=== PATIENT | female | born 1955 | race Caucasian/White ===

== ENCOUNTER 2017-05-06 23:29 | Emergency (ER) | payer BC ==
[~2017-05-06] VITALS: Ht 165.1 cm; Wt 61.2 kg
[~2017-05-06 23:29] MED LIST: ASPI325 PO; ASPI325EC PO; ATEN25 PO; CALCIUM + D3 E1 EACH PO; CENTRUM SILVER1 EAC3 PO; CHOLESTEROL MED; CHOLESTYRAMINE; CITA20 PO; CLOB.05TC TP; CONEST.3 PO; DIAZ2 PO; DIAZ5 PO; DISU250 PO; FENO160; FENO48 PO; FISH OIL 1,0001 EAC1 PO; GEMF600 PO; LEVO750 PO; LOSA50 PO; MELO7.5 PO; MULVITMINF PO; NAPR500 PO; NIAC500 PO; Norco 5-325 Ta1 EACH PO; OMEP10ER PO; OMEP20ER PO; OMEPRAZOLE MAGN20 MG PO; POTCHL20ER PO; PRAV20 PO; PRAV40 PO; PROVASTATIN PO; TRIA80TC TOP; TRIHYD253A PO; UBID100 PO
[2017-05-07 00:14] LABS: BASOPHILS ABSOLUTE AUTO 0.02 K/mm3 (0.00-0.23); BASOPHILS PERCENT AUTO 0 % (0-2); EOSINOPHILS ABSOLUTE AUTO 0.25 K/mm3 (0.00-0.68); EOSINOPHILS PERCENT AUTO 3 % (0-6); Hematocrit 43.1 % (33.0-51.0); Hemoglobin 15.2 g/dL (11.5-16.0); IMMATURE GRAN ABSOLUTE AUTO 0.02 K/mm3 (0.00-0.10); IMMATURE GRAN PERCENT AUTO 0 % (0-1); LYMPHOCYTES ABSOLUTE AUTO 3.77 K/mm3 (0.84-5.20); LYMPHOCYTES PERCENT AUTO 42 % (21-46); MONOCYTES ABSOLUTE AUTO 0.47 K/mm3 (0.16-1.47); MONOCYTES PERCENT AUTO 5 % (4-13); Mean Corpuscular HGB Conc 35.3 g/dL (31.5-36.5); Mean Corpuscular Volume 91 fL (80-100); Mean Platelet Volume 9.4 fL (9.1-12.4); NEUTROPHILS ABSOLUTE AUTO 4.54 K/mm3 (1.96-9.15); NEUTROPHILS PERCENT AUTO 50 % (41-73); Platelet Count 216 K/mm3 (150-400); RDW Coefficient Variation 13.9 % (11.7-14.2); RDW Standard Deviation 46.3 fL (35.1-46.3); Red Blood Cell Count 4.75 M/mm3 (3.80-5.20); White Blood Cell Count 9.07 K/mm3 (4.00-11.30)
[2017-05-07 00:20] LABS: Source, Urine Clean Catch
[2017-05-07 00:24] LABS: Bilirubin, Urine Neg (Neg); Blood, Urine Neg (Neg); Glucose Qualitative, Urine Neg (Neg); Ketones, Urine Neg (Neg); Leukocyte Esterase, Urine Neg (Neg); Nitrite, Urine Neg (Neg); Protein, Urine Neg (Neg); Urobilinogen, Urine NORM (Normal); pH, Urine 6.5 (5.0-8.0)
[2017-05-07 00:26] LABS: Appearance, Urine Clear (Clear); Color, Urine Yellow (P-Yellow)
[2017-05-07 01:11] LABS: Alanine Aminotransfer (ALT/SGP 29 U/L (12-78); Albumin, Blood 3.6 g/dL (3.4-5.0); Albumin/Globulin Ratio 0.9 (0.8-1.8); Alk Phos 110 U/L (50-136); Anion Gap 12 mmol/L (6-16); Aspartate Aminotrans (AST/SGOT 34 U/L (12-37); Bilirubin, Total 0.6 mg/dL (0.1-1.0); Blood Urea Nitrogen 7 mg/dL (8-24); Bun/Creatinine Ratio 17.3 (12.0-20.0); CO2, Blood 24 mmol/L (21-32); Calcium, Blood 8.2 mg/dL (8.5-10.1); Chloride, Blood 100 mmol/L (98-108); Globulin, Blood 3.8 g/dL (2.2-4.0); Glomerular Filtration Rate >60 (60-); Glucose, Blood 115 mg/dL (70-99); Potassium, Blood 3.1 mmol/L (3.5-5.5); Sodium, Blood 136 mmol/L (136-145); Total Protein, Blood 7.4 g/dL (6.4-8.2)
[2017-05-07] MEDS ORDERED: Zofran Odt4 MG PO (01:35)
== END 2017-05-07 01:48 | disposition home or self-care (01) ==
LOC: ER 23:29
PROVIDERS: Emergency Medicine
DX: K52.9 Noninfective gastroenteritis and colitis, unspecified (principal); F17.200 Nicotine dependence, unspecified, uncomplicated; Z88.5 Allergy status to narcotic agent; Z79.899 Other long term (current) drug therapy; Z79.82 Long term (current) use of aspirin; Z96.641 Presence of right artificial hip joint
CPT/HCPCS: 36415; 80053; 81003; 85025; 93005; 93010; 96361; 96374; 99283; J2405; J7030

== ENCOUNTER → 2017-12-08 | Outpatient (CLI) | payer BC ==
[~2017-12-08] MED LIST changes: +Zofran Odt4 MG PO
[2017-12-09 10:01] LABS: Adenovirus F 40/41 Not Detected (NOT DETECT); Astrovirus Not Detected (NOT DETECT); Campylobacter Sp Not Detected (NOT DETECT); Cryptosporidium Not Detected (NOT DETECT); Cyclospora Cayetanensis Not Detected (NOT DETECT); E. Coli O157 Not Detected (NOT DETECT); Entamoeba Histolytica Not Detected (NOT DETECT); Enteroaggregative E. coli-EAEC Not Detected (NOT DETECT); Enteropathogenic E. coli-EPEC Not Detected (NOT DETECT); Enterotoxigenic E. coli-ETEC Not Detected (NOT DETECT); Giardia Lamblia Not Detected (NOT DETECT); Norovirus GI/GII Not Detected (NOT DETECT); Plesiomonas Shigelloides Not Detected (NOT DETECT); Rotavirus A Not Detected (NOT DETECT); Salmonella Sp Not Detected (NOT DETECT); Sapovirus Not Detected (NOT DETECT); Shiga Toxin-prod E. coli-STEC Not Detected (NOT DETECT); Shigella/Enteroin E. coli-EIEC Not Detected (NOT DETECT); Vibrio Cholerae Not Detected (NOT DETECT); Vibrio Sp Not Detected (NOT DETECT); Yersinia Enterocolitica Not Detected (NOT DETECT)
== END | disposition home or self-care (01) ==
LOC: LAB EV 10:00
PROVIDERS: Internal Medicine Gastroenterology
DX: R19.7 Diarrhea, unspecified (principal)
CPT/HCPCS: 87507

== ENCOUNTER 2019-10-17 09:38 | Day surgery (SDC) | payer OTHER ==
[~2019-10-17] VITALS: Ht 167.6 cm; Wt 65.4 kg
[~2019-10-17 09:38] MED LIST changes: -ASPI325 PO; +ASPI81CH PO; -OMEPRAZOLE MAGN20 MG PO
[2019-10-17] MEDS ORDERED: LOSA50 PO (10:35)
[2019-10-17] MEDS ORDERED: REPATHA SU140 MG/1 M SC (10:38)
--- NOTE | 2019-10-17 10:51 | NUR ---
Ambulatory in Day Surgery. History, Chart, Medications and Allergies reviewed before start of procedure. Lungs clear T/O to Auscultation. Patient confirms NPO status and agrees with scheduled surgery. Pre-Op teaching done. Pt verbalizes understanding. Patient States Post-Procedure ride home has been arranged.
--- NOTE | 2019-10-17 11:16 | NUR ---
10/17/19 1116 Lizzeth Teixeira History, Chart, Medications and Allergies reviewed before start of procedure.PATIENT DETERMINED TO BE ASA APPROPRIATE FOR PROPOFOL SEDATION PRIOR TO START OF PROCEDURE BY .MONITOR INTACT WITH CONTINUOUS PULSE OXIMETRY AND INTERMITTENT BP.3-LEAD EKG REVIEWED WITH PHYSICIAN PRIOR TO START OF PROCEDURE.O2 VIA N/C INTACT THROUGHOUT SEDATION/PROCEDURE.Bite Block Placed PROIR TO START
--- NOTE | 2019-10-17 11:47 | NUR ---
Discharge instructions reviewed with patient. Patient verbalizes understanding. Copy given to patient to take home. Patient States Post-Procedure ride home has been arranged. Discharged via wheelchair to private car for ride home.
== END 2019-10-17 23:13 | disposition home or self-care (01) ==
LOC: ORSCMMR 09:38 → ORD 10:30 → ORSCMMR 10:30
PROVIDERS: Internal Medicine Gastroenterology
PROC: 0DB58ZX Excision of Esophagus, Via Natural or Artificial Opening Endoscopic, Diagnostic (ICD-10-PCS; principal; 2019-10-17 10:30)
PROC: 0D758ZZ Dilation of Esophagus, Via Natural or Artificial Opening Endoscopic (ICD-10-PCS; principal; 2019-10-17 10:30)
PROC: 0DB78ZX Excision of Stomach, Pylorus, Via Natural or Artificial Opening Endoscopic, Diagnostic (ICD-10-PCS; principal; 2019-10-17 10:30)
DX: R13.14 Dysphagia, pharyngoesophageal phase (principal); K21.9 Gastro-esophageal reflux disease without esophagitis; K22.70 Barrett's esophagus without dysplasia; K22.2 Esophageal obstruction; K44.9 Diaphragmatic hernia without obstruction or gangrene; K29.70 Gastritis, unspecified, without bleeding; I10 Essential (primary) hypertension; E78.00 Pure hypercholesterolemia, unspecified; Z79.899 Other long term (current) drug therapy; F17.210 Nicotine dependence, cigarettes, uncomplicated
CPT/HCPCS: 88305; 88342; C1726; J2704; J7120

== ENCOUNTER → 2020-03-02 | Outpatient (CLI) | payer OTHER ==
[~2020-03-02] MED LIST changes: +REPATHA SU140 MG/1 M SC
[2020-03-02 13:06] LABS: Alanine Aminotransfer (ALT/SGP 44 U/L (12-78); Albumin/Globulin Ratio 1.3 (0.8-1.8); Alk Phos 61 U/L (40-126); Anion Gap 9 mmol/L (6-16); Aspartate Aminotrans (AST/SGOT 37 U/L (12-37); Bilirubin, Total 0.5 mg/dL (0.1-1.0); Blood Urea Nitrogen 6 mg/dL (8-24); CHOL/HDL RATIO 6.8; CO2, Blood 29 mmol/L (21-32); Calcium, Blood 9.3 mg/dL (8.5-10.1); Chloride, Blood 101 mmol/L (98-108); Cholesterol 318 mg/dL (50-200); Creatinine, Blood 0.67 mg/dL (0.40-1.00); Globulin, Blood 3.1 g/dL (2.2-4.0); Glomerular Filtration Rate >60 (60-); Glucose, Blood 95 mg/dL (70-99); HDL Cholesterol 47 mg/dL (>39); LDL/HDL RATIO 4.1; Low Density Lipoprotein Chol 193 mg/dL (<110); Potassium, Blood 3.8 mmol/L (3.5-5.5); Sodium, Blood 139 mmol/L (136-145); Total Protein, Blood 7.1 g/dL (6.4-8.2); Triglycerides 390 mg/dL (30-160); Very Low Density Lipoprot Chol 78 mg/dL (6-32)
== END ==
LOC: LAB EV 09:53 → LAB SHORT 09:53
PROVIDERS: Nurse Practitioner Family
DX: I10 Essential (primary) hypertension (principal)
CPT/HCPCS: 36415; 80053; 80061

== ENCOUNTER → 2021-01-01 | Outpatient (CLI) | payer OTHER | LOC: LAB 12:06 → LAB SHORT 12:06 | DX: D48.5 Neoplasm of uncertain behavior of skin (principal); D04.61 Carcinoma in situ of skin of right upper limb, including shoulder; Z88.5 Allergy status to narcotic agent | CPT/HCPCS: 88305 ==

== ENCOUNTER → 2021-09-03 | Outpatient (CLI) | payer OTHER | END | disposition home or self-care (01) | LOC: PLD 12:16 → LAB SHORT 12:16 | DX: D04.71 Carcinoma in situ of skin of right lower limb, including hip (principal) | CPT/HCPCS: 88307 ==

== ENCOUNTER → 2021-09-17 | Outpatient (CLI) | payer OTHER ==
[2021-09-17 19:45] LABS: Adenovirus F 40/41 Not Detected (NOT DETECT); Astrovirus Not Detected (NOT DETECT); Campylobacter Sp Not Detected (NOT DETECT); Cryptosporidium Not Detected (NOT DETECT); Cyclospora Cayetanensis Not Detected (NOT DETECT); E. Coli O157 Not Detected (NOT DETECT); Entamoeba Histolytica Not Detected (NOT DETECT); Enteroaggregative E. coli-EAEC Not Detected (NOT DETECT); Enteropathogenic E. coli-EPEC Not Detected (NOT DETECT); Enterotoxigenic E. coli-ETEC Not Detected (NOT DETECT); Giardia Lamblia Not Detected (NOT DETECT); Norovirus GI/GII Not Detected (NOT DETECT); Plesiomonas Shigelloides Not Detected (NOT DETECT); Rotavirus A Not Detected (NOT DETECT); Salmonella Sp Not Detected (NOT DETECT); Sapovirus Not Detected (NOT DETECT); Shiga Toxin-prod E. coli-STEC Not Detected (NOT DETECT); Shigella/Enteroin E. coli-EIEC Not Detected (NOT DETECT); Vibrio Cholerae Not Detected (NOT DETECT); Vibrio Sp Not Detected (NOT DETECT); Yersinia Enterocolitica Not Detected (NOT DETECT)
== END | disposition home or self-care (01) ==
LOC: LAB 09:00 → LAB SHORT 09:00
PROVIDERS: Internal Medicine Gastroenterology
DX: R19.7 Diarrhea, unspecified (principal)
CPT/HCPCS: 87507

== ENCOUNTER 2021-11-26 08:07 | Day surgery (SDC) | payer OTHER ==
[~2021-11-26] VITALS: Ht 165.1 cm; Wt 67.2 kg
[~2021-11-26 08:07] MED LIST changes: +AMLODIPINE BESYL5 MG PO; +CEFD300; +FENO160 PO; +REPATHA SY140 MG/1 M SC
[2021-11-26] MEDS ORDERED: PRALUENT P75 MG/1 ML INJ (08:34)
--- NOTE | 2021-11-26 08:51 | NUR ---
Ambulatory in Day Surgery. History, Chart, Medications and Allergies reviewed before start of procedure. Patient States Post-Procedure ride home has been arranged WITH DAVE.
--- NOTE | 2021-11-26 09:52 | NUR ---
11/26/21 0952 Shereen Fleming HISTORY, CHART, MEDICATIONS AND ALLERGIES REVIEWED BEFORE START OF PROCEDURE. PATIENT CONFIRMS NPO STATUS AND AGREES WITH SCHEDULED PROCEDURE. 3-LEAD EKG REVIEWED WITH PHYSICIAN PRIOR TO START OF PROCEDURE. MONITOR INTACT WITH CONTINUOUS PULSE OXIMETRY,CAPNOGRAPHY, 3-LEAD EKG, INTERMITTENT BP. SUPPLEMENTAL O2 TO BE TITRATED THROUGHOUT PROCEDURE TO MAINTAIN O2 SATURATION ABOVE 90%. PATIENT DETERMINED TO BE ASA APPROPRIATE FOR PROPOFOL SEDATION PRIOR TO START OF PROCEDURE BY DR. EDWARDS.
--- NOTE | 2021-11-26 10:54 | NUR ---
Patient up to Ambulate independently. Gait steady. Discharge instructions reviewed with patient. Patient verbalizes understanding. Copy given to patient to take home. Patient States Post-Procedure ride home has been arranged with Wilbert. Discharged via wheelchair to private car for ride home.
== END 2021-11-26 11:04 | disposition home or self-care (01) ==
LOC: ORSCMMR 08:07 → ORD 09:00 → ORSCMMR 09:00
PROVIDERS: Internal Medicine Gastroenterology
PROC: 0DBN8ZX Excision of Sigmoid Colon, Via Natural or Artificial Opening Endoscopic, Diagnostic (ICD-10-PCS; principal; 2021-11-26 09:00)
PROC: 0DBB8ZX Excision of Ileum, Via Natural or Artificial Opening Endoscopic, Diagnostic (ICD-10-PCS; principal; 2021-11-26 09:00)
PROC: 0DBP8ZX Excision of Rectum, Via Natural or Artificial Opening Endoscopic, Diagnostic (ICD-10-PCS; principal; 2021-11-26 09:00)
DX: R19.7 Diarrhea, unspecified (principal); Z86.010 Personal history of colon polyps; K63.5 Polyp of colon; I10 Essential (primary) hypertension; E78.00 Pure hypercholesterolemia, unspecified; F32.A Depression, unspecified; Z79.899 Other long term (current) drug therapy; F17.210 Nicotine dependence, cigarettes, uncomplicated
CPT/HCPCS: 88305; J2250; J2704; J7120

== ENCOUNTER 2022-03-16 18:25 | Emergency (ER) | payer OTHER ==
[~2022-03-16] VITALS: Ht 167.6 cm; Wt 68.0 kg
[~2022-03-16 18:25] MED LIST changes: +PRALUENT P75 MG/1 ML INJ
[2022-03-16 20:14] LABS: BASOPHILS ABSOLUTE AUTO 0.03 K/mm3 (0.00-0.23); BASOPHILS PERCENT AUTO 0 % (0-2); EOSINOPHILS ABSOLUTE AUTO 0.11 K/mm3 (0.00-0.68); EOSINOPHILS PERCENT AUTO 1 % (0-6); Hematocrit 45.2 % (33.0-51.0); IMMATURE GRAN ABSOLUTE AUTO 0.04 K/mm3 (0.00-0.10); IMMATURE GRAN PERCENT AUTO 1 % (0-1); LYMPHOCYTES ABSOLUTE AUTO 2.98 K/mm3 (0.84-5.20); LYMPHOCYTES PERCENT AUTO 37 % (21-46); MONOCYTES ABSOLUTE AUTO 0.42 K/mm3 (0.16-1.47); MONOCYTES PERCENT AUTO 5 % (4-13); Mean Corpuscular HGB 31.8 pg (26.0-34.0); Mean Corpuscular HGB Conc 33.2 g/dL (31.5-36.5); Mean Corpuscular Volume 96 fL (80-100); Mean Platelet Volume 9.8 fL (9.1-12.4); NEUTROPHILS ABSOLUTE AUTO 4.39 K/mm3 (1.96-9.15); NEUTROPHILS PERCENT AUTO 55 % (41-73); Platelet Count 237 K/mm3 (150-400); RDW Coefficient Variation 12.3 % (11.7-14.2); RDW Standard Deviation 44.3 fL (35.1-46.3); Red Blood Cell Count 4.71 M/mm3 (3.80-5.20); White Blood Cell Count 7.97 K/mm3 (4.00-11.30)
[2022-03-16 20:29] LABS: Albumin, Blood 3.6 g/dL (3.4-5.0); Albumin/Globulin Ratio 1.2 (0.8-1.8); Bilirubin, Total 0.6 mg/dL (0.1-1.0); Bun/Creatinine Ratio 10.7 (12.0-20.0); Creatinine, Blood 0.56 mg/dL (0.40-1.00); Potassium, Blood 3.4 mmol/L (3.5-5.5); Total Protein, Blood 6.6 g/dL (6.4-8.2)
== END 2022-03-16 21:57 | disposition home or self-care (01) ==
LOC: ER 18:25
PROVIDERS: Emergency Medicine
DX: F10.129 Alcohol abuse with intoxication, unspecified (principal); I10 Essential (primary) hypertension; F17.210 Nicotine dependence, cigarettes, uncomplicated; Y90.8 Blood alcohol level of 240 mg/100 ml or more; Z88.5 Allergy status to narcotic agent; Z79.899 Other long term (current) drug therapy
CPT/HCPCS: 36415; 70450; 80053; 85025; G0480

== ENCOUNTER 2022-11-16 09:36 | Day surgery (SDC) | payer OTHER ==
[2022-11-16] VITALS (11 sets, daily range): BP systolic 100–143; BP diastolic 69–98
[~2022-11-16] VITALS: Ht 162.6 cm; Wt 64.5 kg
[~2022-11-16 09:36] MED LIST changes: +CHOLP PO; +ESCI20 PO; +LOPE2C PO; +REPATHA SU140 MG/1 M SQ
--- NOTE | 2022-11-16 10:09 | NUR ---
History, Chart, Medications and Allergies reviewed before start of procedure. Lungs clear T/O to Auscultation. WET COUGH NOTED AND CLEARS PT REPORTS NORMAL "SMOKERS COUGH" Patient confirms NPO status and agrees with scheduled surgery. Pre-Op teaching done. Pt verbalizes understanding. Patient States Post-Procedure ride home has been arranged.
--- NOTE | 2022-11-16 11:42 | NUR ---
11/16/22 1142 Azeem Hilliard HISTORY, CHART, MEDICATIONS AND ALLERGIES REVIEWED BEFORE START OF PROCEDURE. PATIENT CONFIRMS NPO STATUS AND AGREES WITH SCHEDULED PROCEDURE. 3-LEAD EKG REVIEWED WITH PHYSICIAN PRIOR TO START OF PROCEDURE. MONITOR INTACT WITH CONTINUOUS PULSE OXIMETRY,CAPNOGRAPHY, 3-LEAD EKG, INTERMITTENT BP. SUPPLEMENTAL O2 TO BE TITRATED THROUGHOUT PROCEDURE TO MAINTAIN O2 SATURATION ABOVE 90%. PATIENT DETERMINED TO BE ASA APPROPRIATE FOR PROPOFOL SEDATION PRIOR TO START OF PROCEDURE BY
--- NOTE | 2022-11-16 12:15 | NUR ---
Patient up to Ambulate independently. Gait steady. Discharge instructions reviewed with patient. Patient verbalizes understanding. Copy given to patient to take home. Patient States Post-Procedure ride home has been arranged. Discharged via wheelchair to private car for ride home.
== END 2022-11-16 12:15 | disposition home or self-care (01) ==
LOC: ORSCMMR 09:36 → ORD 09:36 → ORSCMMR 09:37 → ORD 10:30
PROVIDERS: Internal Medicine Gastroenterology
PROC: 0DB58ZX Excision of Esophagus, Via Natural or Artificial Opening Endoscopic, Diagnostic (ICD-10-PCS; principal; 2022-11-16 10:30)
PROC: 0DB98ZX Excision of Duodenum, Via Natural or Artificial Opening Endoscopic, Diagnostic (ICD-10-PCS; principal; 2022-11-16 10:30)
PROC: 0DB78ZX Excision of Stomach, Pylorus, Via Natural or Artificial Opening Endoscopic, Diagnostic (ICD-10-PCS; principal; 2022-11-16 10:30)
DX: K22.70 Barrett's esophagus without dysplasia (principal); K29.80 Duodenitis without bleeding; K29.70 Gastritis, unspecified, without bleeding; K21.9 Gastro-esophageal reflux disease without esophagitis; I10 Essential (primary) hypertension; E78.00 Pure hypercholesterolemia, unspecified; Z79.899 Other long term (current) drug therapy; F17.210 Nicotine dependence, cigarettes, uncomplicated
CPT/HCPCS: 88305; 88342; A9270; J2250; J2704; J7120

== ENCOUNTER 2023-05-20 15:41 | Emergency (ER) | payer OTHER ==
[~2023-05-20] VITALS: Ht 167.6 cm; Wt 65.3 kg
[~2023-05-20 15:41] MED LIST changes: +Chromium Pico400 MCG; +VASCEPA1 G1 PO
[2023-05-20 15:44] VITALS: BP 99/67
[2023-05-20 16:49] LABS: BASOPHILS ABSOLUTE AUTO 0.06 K/mm3 (0.00-0.23); BASOPHILS PERCENT AUTO 1 % (0-2); EOSINOPHILS ABSOLUTE AUTO 0.07 K/mm3 (0.00-0.68); EOSINOPHILS PERCENT AUTO 1 % (0-6); Hematocrit 43.2 % (33.0-51.0); IMMATURE GRAN ABSOLUTE AUTO 0.02 K/mm3 (0.00-0.10); IMMATURE GRAN PERCENT AUTO 0 % (0-1); LYMPHOCYTES ABSOLUTE AUTO 2.87 K/mm3 (0.84-5.20); LYMPHOCYTES PERCENT AUTO 44 % (21-46); MONOCYTES ABSOLUTE AUTO 0.34 K/mm3 (0.16-1.47); MONOCYTES PERCENT AUTO 5 % (4-13); Mean Corpuscular HGB 33.1 pg (26.0-34.0); Mean Corpuscular HGB Conc 34.7 g/dL (31.5-36.5); Mean Corpuscular Volume 95 fL (80-100); Mean Platelet Volume 9.4 fL (9.1-12.4); NEUTROPHILS ABSOLUTE AUTO 3.22 K/mm3 (1.96-9.15); NEUTROPHILS PERCENT AUTO 49 % (41-73); Platelet Count 227 K/mm3 (150-400); RDW Coefficient Variation 12.3 % (11.7-14.2); RDW Standard Deviation 43.3 fL (35.1-46.3); Red Blood Cell Count 4.53 M/mm3 (3.80-5.20); White Blood Cell Count 6.58 K/mm3 (4.00-11.30)
[2023-05-20 17:18] LABS: Albumin, Blood 3.5 g/dL (3.4-5.0); Albumin/Globulin Ratio 1.1 (0.8-1.8); Bilirubin, Total 0.7 mg/dL (0.1-1.0); Bun/Creatinine Ratio 19.5 (12.0-20.0); Calcium, Blood 9.2 mg/dL (8.5-10.1); Creatinine, Blood 0.57 mg/dL (0.40-1.00); Globulin, Blood 3.3 g/dL (2.2-4.0); Potassium, Blood 3.2 mmol/L (3.5-5.5); Total Protein, Blood 6.8 g/dL (6.4-8.2)
== END 2023-05-20 18:03 | disposition left against medical advice (07) ==
LOC: ER 15:41
PROVIDERS: Physician Assistant
DX: Z53.21 Procedure and treatment not carried out due to patient leaving prior to being seen by health care provider (principal)
CPT/HCPCS: 80053; 83690; 85025; 93005; 93010; 99282-25

== ENCOUNTER 2023-06-23 18:45 | Emergency (ER) | payer OTHER ==
[~2023-06-23] VITALS: Ht 167.6 cm; Wt 60.3 kg
[2023-06-23 19:58] LABS: BASOPHILS ABSOLUTE AUTO 0.05 K/mm3 (0.00-0.23); BASOPHILS PERCENT AUTO 0 % (0-2); EOSINOPHILS ABSOLUTE AUTO 0.05 K/mm3 (0.00-0.68); EOSINOPHILS PERCENT AUTO 0 % (0-6); Hematocrit 44.9 % (33.0-51.0); Hemoglobin 15.7 g/dL (11.5-16.0); IMMATURE GRAN ABSOLUTE AUTO 0.05 K/mm3 (0.00-0.10); IMMATURE GRAN PERCENT AUTO 0 % (0-1); LYMPHOCYTES ABSOLUTE AUTO 2.84 K/mm3 (0.84-5.20); LYMPHOCYTES PERCENT AUTO 24 % (21-46); MONOCYTES ABSOLUTE AUTO 0.83 K/mm3 (0.16-1.47); MONOCYTES PERCENT AUTO 7 % (4-13); Mean Corpuscular HGB 33.2 pg (26.0-34.0); Mean Corpuscular Volume 95 fL (80-100); Mean Platelet Volume 10.4 fL (9.1-12.4); NEUTROPHILS PERCENT AUTO 68 % (41-73); Platelet Count 199 K/mm3 (150-400); RDW Standard Deviation 41.8 fL (35.1-46.3); Red Blood Cell Count 4.73 M/mm3 (3.80-5.20); White Blood Cell Count 12.02 K/mm3 (4.00-11.30)
[2023-06-23 20:18] LABS: Albumin, Blood 4.1 g/dL (3.4-5.0); Albumin/Globulin Ratio 1.2 (0.8-1.8); Bilirubin, Total 1.8 mg/dL (0.1-1.0); Calcium, Blood 12.7 mg/dL (8.5-10.1); Creatinine, Blood 1.2 mg/dL (0.40-1.00); Globulin, Blood 3.4 g/dL (2.2-4.0); Potassium, Blood 2.9 mmol/L (3.5-5.5); Total Protein, Blood 7.5 g/dL (6.4-8.2)
[2023-06-23] MEDS ORDERED: Aspir 8181 MG PO (20:43)
[2023-06-23] MEDS ORDERED: Potassium Chloride 20 MEQ/15 ML UDC PO ONE (21:45)
[2023-06-23] MEDS ORDERED: NS 1,000 ML IV SCH (21:45)
[2023-06-24 01:13] LABS: Source, Urine Clean Catch
[2023-06-24 01:35] LABS: Bilirubin, Urine Neg (Neg); Blood, Urine 1+ (Neg); Glucose Qualitative, Urine Neg (Neg); Ketones, Urine Neg (Neg); Leukocyte Esterase, Urine 3+ (Neg); Nitrite, Urine Neg (Neg); Protein, Urine 2+ (Neg); Specific Gravity, Urine 1.005 (1.003-1.022); Urobilinogen, Urine NORM (Normal)
[2023-06-24 01:52] LABS: Appearance, Urine Hazy (Clear); Color, Urine Yellow (P-Yellow)
[2023-06-24 01:53] LABS: Bacteria Mod /hpf; Red Blood Cells, Urine 0-2 /hpf (0-2); Squamous Epithelial Cells Few /hpf (Few); White Blood Cells, Urine 25-50 /hpf (0-5)
[2023-06-24 02:33] VITALS: BP 117/104
[2023-06-24] MEDS ORDERED: CEPH500 PO (06:20)
== END 2023-06-24 02:33 | disposition home or self-care (01) ==
LOC: ER 18:45
PROVIDERS: Emergency Medicine; Student in an Organized Health Care Education/Training Program
DX: E86.0 Dehydration (principal); N39.0 Urinary tract infection, site not specified; R91.1 Solitary pulmonary nodule; F17.210 Nicotine dependence, cigarettes, uncomplicated; I10 Essential (primary) hypertension; E78.00 Pure hypercholesterolemia, unspecified; Z79.899 Other long term (current) drug therapy; Z79.82 Long term (current) use of aspirin; Z88.5 Allergy status to narcotic agent
CPT/HCPCS: 71045; 71260; 80053; 81001; 83605; 85025; 85379; 93005; 93010; 99285-25; A9270; J7030; Q9967

== ENCOUNTER 2024-07-11 11:39 | Day surgery (SDC) | payer OTHER ==
[~2024-07-11] VITALS: Ht 160 cm; Wt 66.3 kg
[~2024-07-11 11:39] MED LIST changes: +Aspir 8181 MG PO; +CEPH500 PO; +Lactated Ringer's 1,000 ML IV ONE
[2024-07-11] MEDS ORDERED: METO25 PO (12:11)
[2024-07-11] MEDS ORDERED: PROTONIX40 M2 (12:18)
[2024-07-11] MEDS ORDERED: FOLI1 PO (12:20)
[2024-07-11] MEDS ORDERED: Lactated Ringer's 1,000 ML IV ONE (12:59)
[2024-07-11] MEDS ORDERED: propofoL 20 ML IV ONE ×2 (13:45→13:46)
[2024-07-11 14:48] VITALS: BP 100/74
== END 2024-07-11 14:40 | disposition home or self-care (01) ==
LOC: ORSCSDS 11:39
PROVIDERS: Internal Medicine Gastroenterology
PROC: 0DB68ZX Excision of Stomach, Via Natural or Artificial Opening Endoscopic, Diagnostic (ICD-10-PCS; principal; 2024-07-11 13:15)
PROC: 0D757ZZ Dilation of Esophagus, Via Natural or Artificial Opening (ICD-10-PCS; principal; 2024-07-11 13:15)
DX: K21.00 Gastro-esophageal reflux disease with esophagitis, without bleeding (principal); Z87.11 Personal history of peptic ulcer disease; K22.70 Barrett's esophagus without dysplasia; K44.9 Diaphragmatic hernia without obstruction or gangrene; Z86.79 Personal history of other diseases of the circulatory system; I10 Essential (primary) hypertension; E78.00 Pure hypercholesterolemia, unspecified; F41.1 Generalized anxiety disorder; F32.A Depression, unspecified; F17.210 Nicotine dependence, cigarettes, uncomplicated; Z79.899 Other long term (current) drug therapy
CPT/HCPCS: 88305; 88342; J2704; J7120

== ENCOUNTER → 2024-08-16 | Outpatient (CLI) | payer OTHER ==
[~2024-08-16] MED LIST changes: +FOLI1 PO; -Lactated Ringer's 1,000 ML IV ONE; +METO25 PO; +PROTONIX40 M2
== END ==
LOC: LAB 17:39 → LAB SHORT 17:39
DX: R82.998 Other abnormal findings in urine (principal); Z71.1 Person with feared health complaint in whom no diagnosis is made
CPT/HCPCS: 87077; 87086; 87186

== ENCOUNTER 2024-09-15 19:18 | Observation (INO) | payer OTHER ==
[~2024-09-15] VITALS: Ht 165.1 cm; Wt 64.9 kg
[~2024-09-15 19:18] MED LIST changes: -PROTONIX40 M2; +PROTONIX40 M2 PO
[2024-09-15 19:59] LABS: BASOPHILS ABSOLUTE AUTO 0.02 K/mm3 (0.00-0.23); BASOPHILS PERCENT AUTO 0 % (0-2); EOSINOPHILS ABSOLUTE AUTO 0.04 K/mm3 (0.00-0.68); EOSINOPHILS PERCENT AUTO 0 % (0-6); Hematocrit 41.2 % (33.0-51.0); Hemoglobin 14.7 g/dL (11.5-16.0); IMMATURE GRAN ABSOLUTE AUTO 0.08 K/mm3 (0.00-0.10); IMMATURE GRAN PERCENT AUTO 1 % (0-1); LYMPHOCYTES ABSOLUTE AUTO 2.52 K/mm3 (0.84-5.20); LYMPHOCYTES PERCENT AUTO 17 % (21-46); MONOCYTES ABSOLUTE AUTO 0.94 K/mm3 (0.16-1.47); MONOCYTES PERCENT AUTO 6 % (4-13); Mean Corpuscular HGB 32.2 pg (26.0-34.0); Mean Corpuscular HGB Conc 35.7 g/dL (31.5-36.5); Mean Corpuscular Volume 90 fL (80-100); Mean Platelet Volume 9.8 fL (9.1-12.4); NEUTROPHILS ABSOLUTE AUTO 11.67 K/mm3 (1.96-9.15); NEUTROPHILS PERCENT AUTO 76 % (41-73); Platelet Count 475 K/mm3 (150-400); RDW Coefficient Variation 12.4 % (11.7-14.2); RDW Standard Deviation 40.3 fL (35.1-46.3); Red Blood Cell Count 4.56 M/mm3 (3.80-5.20); White Blood Cell Count 15.27 K/mm3 (4.00-11.30)
[2024-09-15 20:16] LABS: International Normalized Ratio 1.23; Prothrombin Time Results 13.3 Sec (9.7-11.5)
[2024-09-15 20:22] LABS: Albumin, Blood 3.8 g/dL (3.4-5.0); Albumin/Globulin Ratio 0.8 (0.8-1.8); Bilirubin, Total 1.2 mg/dL (0.1-1.0); Bun/Creatinine Ratio 24.8 (12.0-20.0); Calcium, Blood 11.5 mg/dL (8.5-10.1); Creatinine, Blood 1.29 mg/dL (0.40-1.00); Globulin, Blood 4.5 g/dL (2.2-4.0); Potassium, Blood 3.4 mmol/L (3.5-5.5); Total Protein, Blood 8.3 g/dL (6.4-8.2)
[2024-09-15] MEDS ORDERED: NS 1,000 ML IV SCH (21:20)
[2024-09-15] MEDS ORDERED: FentaNYL Citrate 50 MCG/ML 2 ML Injection IV ONE (22:15)
[2024-09-15] MEDS ORDERED: Mag Hydrox/AL Hydrox/Simeth 30 ML UDC PO ONE (22:15)
[2024-09-15] MEDS ORDERED: Atropine/Scopalam/Hyoscam/PB 5 ML UDC PO ONE (22:15)
[2024-09-15] MEDS ORDERED: Lidocaine 2% Viscous Soln 15 ML UDC PO ONE (22:15)
[2024-09-15] MEDS ORDERED: FentaNYL Citrate 50 MCG/ML 2 ML Injection IV PRN (23:10)
[2024-09-15] MEDS ORDERED: NS 1,000 ML IV ONE (23:10)
[2024-09-15] MEDS ORDERED: Ondansetron HCl 2 MG / ML 2ML Vial IV PRN (23:10)
[2024-09-15] MEDS ORDERED: Pantoprazole Sodium 40 MG Injection IV ONE (23:45)
[2024-09-15] MEDS ORDERED: Pantoprazole Sodium 40 MG in NS 50 ML IV SCH (23:50)
[2024-09-16 02:25] LABS: Hemoglobin 11.3 g/dL (11.5-16.0)
[2024-09-16] MEDS ORDERED: Potassium Chloride 40 MEQ in NS 250 ML IV ONE (03:45)
[2024-09-16 07:11] LABS: BASOPHILS ABSOLUTE AUTO 0.02 K/mm3 (0.00-0.23); BASOPHILS PERCENT AUTO 0 % (0-2); EOSINOPHILS ABSOLUTE AUTO 0.05 K/mm3 (0.00-0.68); EOSINOPHILS PERCENT AUTO 1 % (0-6); Hematocrit 31.5 % (33.0-51.0); Hemoglobin 11.1 g/dL (11.5-16.0); IMMATURE GRAN ABSOLUTE AUTO 0.06 K/mm3 (0.00-0.10); IMMATURE GRAN PERCENT AUTO 1 % (0-1); LYMPHOCYTES ABSOLUTE AUTO 1.82 K/mm3 (0.84-5.20); LYMPHOCYTES PERCENT AUTO 17 % (21-46); MONOCYTES ABSOLUTE AUTO 1.01 K/mm3 (0.16-1.47); MONOCYTES PERCENT AUTO 9 % (4-13); Mean Corpuscular HGB 32.8 pg (26.0-34.0); Mean Corpuscular HGB Conc 35.2 g/dL (31.5-36.5); Mean Corpuscular Volume 93 fL (80-100); NEUTROPHILS ABSOLUTE AUTO 7.99 K/mm3 (1.96-9.15); NEUTROPHILS PERCENT AUTO 73 % (41-73); Platelet Count 320 K/mm3 (150-400); RDW Coefficient Variation 12.6 % (11.7-14.2); RDW Standard Deviation 43.2 fL (35.1-46.3); Red Blood Cell Count 3.38 M/mm3 (3.80-5.20); White Blood Cell Count 10.95 K/mm3 (4.00-11.30)
[2024-09-16 07:32] LABS: LDL/HDL RATIO 1.6; Very Low Density Lipoprot Chol 64 mg/dL (6-32)
[2024-09-16 07:36] LABS: CHOL/HDL RATIO 4.1; Cholesterol 179 mg/dL (50-200); HDL Cholesterol 44 mg/dL (>39); Low Density Lipoprotein Chol 71 mg/dL (0-110); Magnesium, Blood 0.6 mg/dL (1.6-2.4); Triglycerides 320 mg/dL (30-160)
[2024-09-16 07:37] LABS: Albumin, Blood 2.7 g/dL (3.4-5.0); Albumin/Globulin Ratio 0.8 (0.8-1.8); Bilirubin, Total 0.9 mg/dL (0.1-1.0); Bun/Creatinine Ratio 27.4 (12.0-20.0); Calcium, Blood 9.1 mg/dL (8.5-10.1); Creatinine, Blood 0.88 mg/dL (0.40-1.00); Globulin, Blood 3.3 g/dL (2.2-4.0)
[2024-09-16] MEDS ORDERED: Magnesium Sulf 2 GM/Water 50ML 50 ML IV ONE (07:45)
[2024-09-16 08:50] VITALS: BP 116/84
--- NOTE | 2024-09-16 09:20 | NUR ---
ADMISSION NOTE: PATIENT ARRIVED TO THE UNIT VIA WHEELCHAIR AT 0834 AND WAS ABLE TO TRANSFER ONTO THE BED WITH ASSISTANCE. PATIENT ALERT AND PLEASANT, IV FLUIDS/MEDS RUNNING. PATIENT SETTLED IN ROOM, CALL LIGHT PROVIDED, SKIN AND IV'S ASSESSED, ORAL SWABS AND MOUTH MOISTURE FOR DRY MOUTH DUE TO NPO STATUS. ECHO ARRIVED AT BEDSIDE. DURING ADMISSION PATIENT STATES THAT SHE IS A DNR. SHE IS IN BED, CALL LIGHT WITHIN REACH, NO SIGNS OR SYMPTOMS OF DISTRESS, PLAN OF CARE ONGOING.
--- NOTE | 2024-09-16 13:59 | NUR ---
PATIENT C/O GI UPSET AFTER A COUPLE BITES OF LUNCH; REPORTING HEART BURN SYMPTOMS. DR. BERGERON NOTIFIED AND TELEPHONE ORDER GIVEN FOR PROTONIX 40 MG PO NOW.
[2024-09-16] MEDS ORDERED: Pantoprazole Sodium 40 MG Tab PO ONE (14:00)
[2024-09-16 15:14] LABS: Hemoglobin 11.2 g/dL (11.5-16.0)
[2024-09-16 15:42] VITALS: BP 130/74
--- NOTE | 2024-09-16 16:36 | NUR ---
NOTIFIED DR. BERGERON THAT THE MED REC IS DONE ON THE PATIENT.
--- NOTE | 2024-09-16 16:37 | NUR ---
SHIFT SUMMARY: PATIENT IS A&OX4/SBA/INDEPENDENT TO THE RESTROOM. SHE IS PLEASANT AND COOPERATIVE WITH CARE; CALLS APPROPRIATELY; SOMEWHAT TOLERATING A FULL LIQUID DIET AT THIS TIME WITH OCCASIONAL COMPLAINS OF GI UPSET. SHE IS IN BED, ALERT, CALL LIGHT WITHIN REACH, NO SIGNS OR SYMPTOMS OF DISTRESS, PLAN OF CARE ONGOING.
[2024-09-16 19:04] VITALS: BP 134/74
[2024-09-16 20:35] LABS: Hematocrit 30.7 % (33.0-51.0); Hemoglobin 10.7 g/dL (11.5-16.0)
[2024-09-16 23:32] VITALS: BP 122/81
--- NOTE | 2024-09-17 03:07 | NUR ---
SHIFT SUMM: PT IS A 68 YO DNR ADMITTED FOR ACUTE PANCREATITIS.PT IS A&OX4 AND USES A FWW IND/SBA TO THE BATHROOM. PT HAS BEEN RELAXING MOST OF THE SHIFT AND CALLS TO MAKE NEEDS KNOWN. PT WAS MEDICATED FOR PAIN PER EMAR. PT HAS PATENT PIV TO RAC. PT ON TELE AND NSR IN THE 70'S. CURRENTLY ON RA WITH NO SOB. CONTINENT TO URINE AND BOWEL. FULL LIQUID DIET AND TOLERATING WELL. NO ACUTE EVENTS THIS SHIFT PT IS HOPEFUL TO D/C TODAY. HAS CALL LIGHT IN REACH AND BED LOW AND LOCKED.
[2024-09-17 03:29] VITALS: BP 135/78
[2024-09-17 07:30] VITALS: BP 147/92
--- NOTE | 2024-09-17 09:10 | NUR ---
CALLED DR KHAN- PT REQUESTED AN ANTACID AFTER EATING HER BREAKFAST. NOTED SHE HAS A PROTONIX DRIP THAT SHE HAS NEVER RECIEVED. CALLED TO CLARIFY IF THAT SHOULD BE STARTED AT THIS TIME OR NOT. RECIEVED ORDER TO DC PROTONIX DRIP AND GIVE 40MG PO PROTONIX
[2024-09-17] MEDS ORDERED: Pantoprazole Sodium 40 MG Tab PO SCH (09:15)
[2024-09-17 12:19] LABS: U Amphetamine Screen Not Detected; U Barbituate Screen DETECTED; U Benzodiazapine Screen Not Detected; U Buprenorphine Screen Not Detected; U Cannabinoids Screen Not Detected; U Cocaine Screen Not Detected; U Methadone Screen Not Detected; U Methamphetamine Screen Not Detected; U Opiates Screen Not Detected; U Oxycodone Screen Not Detected; U Phencyclidine Screen Not Detected
--- NOTE | 2024-09-17 15:55 | NUR ---
DISCHARGE NOTE- PT WAS GIVEN VERBAL AND WRITTEN DISCHARGE INSTRUCTIONS AND ACKNOWLEDGED UNDERASTANDING OF THEM. SHE REFUSED WC ESCORT AND WALKED OUT WITH HER WALKER TO THE MAIN ENTRANCE WITH THE BREAK RN. HER SON HAD NOT YET ARRIVED SO SHE SAT IN THE WAITING AREA CHAIRS TO WAIT FOR HIS ARRIVAL. IV AND TELE DC'D PRIOR TO DISCHARGE. NO S&S OF DISTRESS NOTED AT THE TIME OF DISCHARGE.
[2024-09-17] MEDS ORDERED: Omega-3 Acid Ethyl Esters 1,000 MG CAP PO SCH (17:00)
[2024-09-17] MEDS ORDERED: Metoprolol Tartrate 25 MG Tab PO SCH (21:00)
[2024-09-17] MEDS ORDERED: Losartan Potassium 50 MG Tab PO SCH (21:00)
[2024-09-18] MEDS ORDERED: Citalopram Hydrobromide 20 MG Tab PO SCH (09:00)
[2024-09-18] MEDS ORDERED: Folic Acid 1 MG TAB PO SCH (09:00)
[2024-09-18] MEDS ORDERED: Fenofibrate, Micronized 134 MG Capsule PO SCH (09:00)
== END 2024-09-17 15:45 | disposition home or self-care (01) ==
LOC: ER 19:18 → ERHOLD 19:19 → ER 19:19 → MEDS 19:19 → ERHOLD 19:19 → MEDS 09-16 08:41
PROVIDERS: Student in an Organized Health Care Education/Training Program; ADMIT Internal Medicine
DX: K85.90 Acute pancreatitis without necrosis or infection, unspecified (principal); I10 Essential (primary) hypertension; F32.9 Major depressive disorder, single episode, unspecified; F10.90 Alcohol use, unspecified, uncomplicated; K21.9 Gastro-esophageal reflux disease without esophagitis; E78.5 Hyperlipidemia, unspecified; E86.0 Dehydration; E87.6 Hypokalemia; K76.0 Fatty (change of) liver, not elsewhere classified; Z79.899 Other long term (current) drug therapy; Z88.5 Allergy status to narcotic agent; Z88.8 Allergy status to other drugs, medicaments and biological substances
CPT/HCPCS: 36415; 71046; 74177; 80053; 80061; 83605; 83690; 83735; 83880; 85014; 85018; 85025; 85610; 85730; 86850; 86900; 86901; 93005; 93010; 93306; 96365; 96366; 96375; 96376; 99285-25; A9270; G0378; J2470; J3010; J3475; J3480; J7030; J7050; Q9967